=== PATIENT | female | born 1980 | race Caucasian/White ===

== ENCOUNTER 2023-07-10 20:30 | Emergency (ER) | payer MEDICAID, OTHER ==
[~2023-07-10] VITALS: Ht 167.6 cm; Wt 104.3 kg
[~2023-07-10 20:30] MED LIST: MELA10TA2 PO
[2023-07-10 20:35] VITALS: BP_SYST 144; PULSE 89; RESP 19; TEMP 97.6; O2SAT 100
[2023-07-10 20:58] LABS: BASOPHILS # (AUTO) 0.1 K/uL (0.0-0.2); EOSINOPHILS # (AUTO) 0.3 K/uL (0.0-0.4); HEMATOCRIT 41.2 % (36-48); HEMOGLOBIN 14.1 g/dL (12.0-16.0); LYMPHOCYTES # (AUTO) 2.2 K/uL (1.0-5.5); LYMPHOCYTES % (AUTO) 27.4 % (20.5-51.5); MEAN CORPUSCULAR HEMOGLOBIN 29 pg (27-31); MEAN CORPUSCULAR HGB CONC 34 % (32-36); MEAN CORPUSCULAR VOLUME 85 fL (79.0-98.0); MONOCYTES # (AUTO) 0.5 K/uL (0.0-1.0); MONOCYTES % (AUTO) 5.6 % (1.7-9.3); PLATELET COUNT (AUTO) 327 K/uL (130-430); RED BLOOD CELL COUNT(AUTO) 4.85 MIL/uL (4.2-6.2); RED CELL DISTRIBUTION WIDTH 13.2 % (9.0-15.0)
[2023-07-10 21:13] LABS: ANION GAP 7 (5-15); CALCIUM 9.8 mg/dL (8.4-11.0); CARBON DIOXIDE 26 mmol/L (23-29); CHLORIDE 105 mmol/L (98-107); CREATININE 0.87 mg/dL (0.55-1.30); GFR AFRICAN AMERICAN 91 mL/min (>90); GLUCOSE 96 mg/dL (74-106); POTASSIUM 3.6 mmol/L (3.5-5.1); SODIUM SERUM 138 mmol/L (136-145); UREA NITROGEN, BLOOD 12 mg/dL (8-21)
[2023-07-10] MEDS ORDERED: LABETALOL HCL 20 MG/4 ML CARTRIDGE IVP ONE (21:15)
[2023-07-10 21:17] LABS: GFR NON AFRICAN-AMERICAN 75 mL/min (>90)
[2023-07-10 21:20] LABS: ALANINE AMINOTRANSFERASE 36 U/L (12-78); ASPARTATE AMINOTRANSFERASE 23 U/L (10-37); TOTAL BILIRUBIN 0.3 mg/dL (0.0-1.0); TOTAL PROTEIN, SERUM 6.9 g/dL (6.4-8.3)
[2023-07-10 21:24] LABS: BILIRUBIN,URINE NEGATIVE (NEGATIVE); CLARITY/URINE CLEAR (CLEAR); COLOR,URINE YELLOW (YELLOW); GLUCOSE,URINE NEGATIVE (NEGATIVE); KETONES,URINE NEGATIVE (NEGATIVE); LEUKOCYTE ESTERASE ,URINE NEGATIVE (NEGATIVE); NITRITE, URINE NEGATIVE (NEGATIVE); PROTEIN URINE NEGATIVE (NEGATIVE); UROBILINOGEN,URINE 0.2 (0.2-1.0)
[2023-07-10 21:31] LABS: BLOOD, URINE TRACE (NEGATIVE)
[2023-07-10 21:46] LABS: BACTERIA,URINE None Seen /HPF (None Seen)
[2023-07-10] MEDS ORDERED: ACETAMINOPHEN 500 MG TABLET PO ONE (22:00)
[2023-07-10] MEDS ORDERED: AMLO5TAB4 PO (22:04)
[2023-07-10] MEDS ORDERED: ACET325T53 PO (22:04)
[2023-07-10] MEDS ORDERED: LIDO1ADH22 TP (22:04)
[2023-07-10 22:50] VITALS: BP_SYST 170; PULSE 79; RESP 19; TEMP 97.6; O2SAT 100
[2023-07-10] MEDS ORDERED: NITSL SL (23:52)
== END 2023-07-10 22:50 | disposition home or self-care (01) ==
LOC: SED 20:30
DX: I16.0 Hypertensive urgency (principal); R07.89 Other chest pain; R51.9 Headache, unspecified; Z88.1 Allergy status to other antibiotic agents; Z88.2 Allergy status to sulfonamides; Z79.899 Other long term (current) drug therapy
CPT/HCPCS: 36415; 71045; 80053; 81000; 81001; 81015; 81025; 84484; 85025; 93005; 96374; 99285